=== PATIENT | female | born 1960 | race Caucasian/White ===

== ENCOUNTER 2017-04-19 06:25 | Day surgery (SDC) | payer OTHER ==
[2017-04-18 09:03] VITALS: BMI 27.1
[~2017-04-19 06:25] MED LIST: BACITRACIN/POLYMYXIN B SULFATE 15 GM TUBE TP ONE; LEVOFLOXACIN 500 MG PREMIX BAG IVPB ONE
[2017-04-19] MEDS ORDERED: VASOPRESSIN 20 UNITS/ML VIAL IV ONE (07:05)
[2017-04-19] MEDS ORDERED: BACITRACIN 30 GM TUBE TOPICAL OINTMENT ONE (07:43)
--- NOTE | 2017-04-19 07:49 | HP ---
History & Physical Update - History History: No Change - Physical Physical: No Change - Assessment Assessment: No Change - Plan Plan: No Change
[2017-04-19] MEDS ORDERED: ACETAMINOPHEN 1000 MG/100 ML VIAL (NON FORMULARY) IVPB ONE ×2 (07:51→09:30)
[2017-04-19] MEDS ORDERED: DEXTROSE 5%-0.45% SALINE 1,000 ML IV SCH (08:00)
[2017-04-19] MEDS ORDERED: MIDAZOLAM HCL 2 MG/2 ML SINGLE DOSE VIAL ONE (08:01)
[2017-04-19] MEDS ORDERED: LIDOCAINE HCL/PF 2% SDV 5ML VIAL ONE (08:06)
[2017-04-19] MEDS ORDERED: PROPOFOL 20 ML ONE ×2 (08:06→08:07)
[2017-04-19] MEDS ORDERED: LEVOFLOXACIN 500 MG PREMIX BAG IVPB ONE (08:13)
[2017-04-19] MEDS ORDERED: LEVOFLOXACIN 500 MG IVPB 100 ML IVPB ONE (08:15)
[2017-04-19] MEDS ORDERED: DEXAMETHASONE SOD PHOSPHATE 4 MG/1 ML VIAL ONE (08:24)
[2017-04-19] MEDS ORDERED: ONDANSETRON 4 MG/2 ML VIAL ONE (08:24)
[2017-04-19] MEDS ORDERED: BACITRACIN/POLYMYXIN B SULFATE 15 GM TUBE TP ONE (08:50)
[2017-04-19] MEDS ORDERED: KETOROLAC TROMETHAMINE 30 MG/1 ML VIAL ONE (08:53)
[2017-04-19] MEDS ORDERED: ONDANSETRON 4 MG/2 ML VIAL IVPUSH PRN (09:04)
[2017-04-19] MEDS ORDERED: oxyCODONE HCL 5 MG TABLET PO PRN (09:04)
[2017-04-19] MEDS ORDERED: LACTATED RINGERS SOLUTION 1,000 ML IV SCH (09:15)
[2017-04-19] MEDS ORDERED: ACETAMINOPHEN INJECTION 100 ML IVPB ONE (09:40)
[2017-04-19] MEDS ORDERED: oxyCODONE HCL 5 MG TABLET ONE (11:35)
[2017-04-19 15:19] VITALS: BP 148/82; PULSE 82; TEMP 98
--- NOTE | 2017-04-20 06:43 | OP ---
DATE OF OPERATION: 04/19/2017 PREOPERATIVE DIAGNOSIS: Stress urinary incontinence. POSTOPERATIVE DIAGNOSIS: Stress urinary incontinence. PROCEDURE: Suburethral sling placement and cystoscopy. ANESTHESIA: General. ANESTHESIOLOGIST: Kathe Montoya MD SURGEON: Gage Guillen MD ESTIMATED BLOOD LOSS: 100 mL. SPECIMENS: None. FINDINGS: Normal cystoscopy. PREOPERATIVE INDICATIONS: The patient is a 56-year-old female with classic stress urinary incontinence and hypermobility of urethra on examination. Urodynamics confirms stress urinary incontinence. She comes to the OR for sling placement. OPERATION: The patient was brought to the OR, placed on the table in the supine position, given general anesthesia and IV antibiotics, and placed in the modified lithotomy position. The groin was prepped and draped sterilely. Time-out was performed. Cortez catheter was placed. The mid-portion of the urethra was identified and Pitressin was injected into the vaginal mucosa. Incision was made over the midline, the middle third of the urethra, and the vaginal mucosa was dissected off the periurethral tissues in a lateral fashion. The bladder was emptied. A mini-sling was applied. A trocar was placed on the right side under fingertip control towards the obturator foramen. Similar procedure was done on the left side. The sling was then tightened to just be touching the urethra without compressing it. Cystoscopy was then performed. The bladder appeared to be normal. No evidence of perforation or other stones or tumors seen. The Cortez was replaced. The excess suture was removed, and the vaginal mucosa was closed with 3-0 Vicryl suture n two layers. Vaginal packing and Cortez catheter were both left in place. The patient was woken up. Julissa [id number]
== END 2017-04-19 15:21 | disposition home or self-care (01) ==
LOC: JASU-SURG 06:25
PROVIDERS: ATTEND Urology
PROC: 0TSD0ZZ Reposition Urethra, Open Approach (ICD-10-PCS; principal; 2017-04-19 08:00)
DX: N39.3 Stress incontinence (female) (male) (principal)
CPT/HCPCS: 94760

== ENCOUNTER 2017-04-25 10:48 | Emergency (ER) | payer OTHER ==
[2017-04-25 10:54] VITALS: BP 131/73; PULSE 88; TEMP 98; BMI 26.9
[2017-04-25] MEDS ORDERED: KETOROLAC TROMETHAMINE 60 MG/2 ML VIAL IM ONE (11:43)
[2017-04-25] MEDS ORDERED: KETOROLAC TROMETHAMINE 60 MG/2 ML VIAL ONE (11:47)
--- NOTE | 2017-04-25 11:52 | PDOC ---
History of Present Illness - General Chief Complaint: Pain Stated Complaint: ARM PAIN Time Seen by Provider: 04/25/17 11:24 History Source: Patient Exam Limitations: No Limitations - History of Present Illness Initial Comments: 04/25/17 11:44 56 yr female with c/o one week pain to her right elbow. Pt denies injury no fever or chills. Pt has DM, HTN, high cholesterol, pt is right hand dominant. Past History - Past Medical History Allergies/Adverse Reactions: Allergies Allergy/AdvReac Type Severity Reaction Status Date / Time Penicillins Allergy Intermediate Rash Verified 04/25/17 10:50 Home Medications: Ambulatory Orders Metformin HCl [Glucophage -] 1,000 mg PO DAILY 01/17/15 Losartan Potassium [Cozaar -] 50 mg PO DAILY 02/27/16 Gabapentin [Neurontin] 300 mg PO PRN PRN 04/18/17 Omeprazole/Sodium Bicarbonate [Zegerid 20mg (RX)] 1 each PO DAILY 04/18/17 Simvastatin 40 mg PO DAILY 04/18/17 Oxycodone HCl/Acetaminophen [Percocet 5-325 mg Tablet -] 1 tab PO Q4H PRN #20 tablet MDD 6 04/19/17 Levofloxacin [Levaquin] 1 tab PO DAILY 04/25/17 Naproxen [Naprosyn -] 500 mg PO BID PRN #14 tablet 04/25/17 Anemia: No Asthma: No Cancer: No Cardiac Disorders: No CVA: No COPD: No CHF: No Dementia: No Diabetes: Yes GI Disorders: Yes (?ESOPHAGUS) Disorders: No HTN: Yes Hypercholesterolemia: Yes Liver Disease: No Seizures: No Thyroid Disease: No - Surgical History Abdominal Surgery: Yes (HERNIA) Appendectomy: No Cardiac Surgery: No Cholecystectomy: Yes Lung Surgery: No Neurologic Surgery: No Orthopedic Surgery: No - Psycho/Social/Smoking Cessation Hx Anxiety: No Suicidal Ideation: No Smoking Status: No Smoking History: Never smoked Have you smoked in the past 12 months: No Number of Cigarettes Smoked Daily: 0 Information on smoking cessation initiated: No Hx Alcohol Use: No Drug/Substance Use Hx: No Substance Use Type: None Hx Substance Use Treatment: No Review of Systems - Review of Systems Able to Perform ROS?: Yes Is the patient limited Sinhala proficient: Yes Constitutional: No: Symptoms Reported, Unexplained wgt Loss HEENTM: No: Symptoms Reported Respiratory: No: Symptoms reported Cardiac (ROS): No: Symptoms Reported ABD/GI: No: Symptoms Reported : No: Symptoms Reported Musculoskeletal: Yes: Symptoms Reported *Physical Exam - Vital Signs Last Vital Signs Temp Pulse Resp BP Pulse Ox 98.0 F 88 18 131/73 100 04/25/17 10:50 04/25/17 10:50 04/25/17 10:50 04/25/17 10:50 04/25/17 10:50 - Physical Exam General Appearance: Yes: Nourished, Appropriately Dressed HEENT: positive: EOMI, AIDA Neck: negative: Tender Respiratory/Chest: positive: Lungs Clear, Normal Breath Sounds Cardiovascular: positive: Regular Rhythm, Regular Rate Gastrointestinal/Abdominal: positive: Normal Bowel Sounds, Soft Musculoskeletal: positive: Normal Inspection Extremity: positive: Normal Capillary Refill, Normal Inspection, Tender ( lateral elbow right side , nv intact FROM pain with extension ). negative: Swelling, Erythema, Inflammation Integumentary: positive: Normal Color, Dry, Warm Neurologic: positive: Fully Oriented, Alert, Normal Mood/Affect, Normal Response , Motor Strength 03/11 ED Treatment Course - RADIOLOGY Radiology Studies Ordered: Category Date Time Status ELBOW-RIGHT [RAD] Stat Radiology 04/25/17 11:43 Ordered Medical Decision Making - Medical Decision Making 04/25/17 11:46 cc: right elbow pain one week denies trauma no redness no warmth no fluctuance, pt has FROM of the elbow with some pain with extension, however full range will get xray and give toradol 04/25/17 15:00 xray negative for any acute fracture will give sling and ortho follow up *DC/Admit/Observation/Transfer Diagnosis at time of Disposition: Elbow tendonitis - Discharge Dispostion Disposition: HOME Condition at time of disposition: Fair - Prescriptions Prescriptions: Naproxen [Naprosyn -] 500 mg PO BID PRN #14 tablet PRN Reason: Pain - Referrals Referrals: Maricarmen Cervantes MD [Primary Care Provider] - Bartolo Toro MD [Staff Physician] - - Patient Instructions Additional Instructions: please follow with your primary care doctor for follow up this week use the sling while awake remove to sleep and bathe apply warm compresses to the area of pain every 3hrs for 20 minutes take naprosyn as directed for pain
== END 2017-04-25 13:22 | disposition home or self-care (01) ==
LOC: JERFT 10:48
PROC: 3E0233Z Introduction of Anti-inflammatory into Muscle, Percutaneous Approach (ICD-10-PCS; principal; 2017-04-25)
DX: M77.8 Other enthesopathies, not elsewhere classified (principal); I10 Essential (primary) hypertension; E11.9 Type 2 diabetes mellitus without complications; Z79.84 Long term (current) use of oral hypoglycemic drugs; E78.00 Pure hypercholesterolemia, unspecified; I87.2 Venous insufficiency (chronic) (peripheral)
CPT/HCPCS: 73070-TC-RT; 96372; 99281-25; G0463-25

== ENCOUNTER 2017-05-16 10:28 | Observation (INO) | payer OTHER ==
[2017-05-16 10:38] VITALS: BMI 27.1
--- NOTE | 2017-05-16 11:15 | PDOC ---
History of Present Illness - General Chief Complaint: Back Pain Stated Complaint: BACK PAIN Time Seen by Provider: 05/16/17 11:14 History Source: Patient Exam Limitations: No Limitations - History of Present Illness Initial Comments: CHIEF COMPLAINT: 57 y/o afebrile female with PMH NIDDM, HTN c/o right sided low back pain x 3 days. HISTORY OF PRESENT ILLNESS: The patient states she developed right sided low back pain 3 days ago while doing nothing. She states she has had this pain in the past and has had to have an "injection". She states it is radiating down her right leg and is painful when she moves her right leg. She took a gabapentin for pain with little relief. She denies fall, trauma to back, urinary or bowel incontinence, saddle anesthesia, n/v/d, CP, SOB, abd pain, numbness/tingling in LEs. Vital signs on arrival are notable for pulse of 92. REVIEW OF SYSTEMS: GENERAL/CONSTITUTIONAL: No fever/chills. No weakness. No weight change. HEAD, EYES, EARS, NOSE AND THROAT: No change in vision. No ear pain or discharge. No sore throat. CARDIOVASCULAR: No chest pain or shortness of breath. RESPIRATORY: No cough, wheezing, or hemoptysis. GASTROINTESTINAL: No abd pain, nausea, vomiting, diarrhea. GENITOURINARY: No dysuria, frequency, or change in urination. MUSCULOSKELETAL: No joint or muscle swelling or pain. No neck pain. +right sided low back pain. SKIN: No rash or easy bruising. NEUROLOGIC: No headache, vertigo, loss of consciousness, or loss of sensation. PHYSICAL EXAM: GENERAL: The patient is awake, alert, and fully oriented, in no acute distress. She is lying flat on her back in the ED bed. HEAD: Normal with no signs of trauma. ENT: Pupils equal, round and reactive to light, extraocular movements intact, sclera anicteric, conjunctiva clear. Neck supple. LUNGS: Clear to auscultation bilaterally. Normal excursion. No respiratory distress or use of accessory muscles. CV: RRR, S1/S2, no MRG. Cap refill < 2 sec. ABDOMEN: Soft, non-distended, non-tender even to deep palpation, no hepatomegaly or splenomegaly, no masses. No flank pain. BACK: No midline lumbar or sacral spine TTP or step offs. TTP of right lower lumbar and sacral paravertebral muscles at level of L5 and inferior. Pain reproduced with palpation of right gluteal muscles. EXTREMITIES: Normal range of motion, no edema. Pain with movement of right leg. NEUROLOGICAL: Normal speech. CN II-XII grossly intact. No saddle anesthesia. Equal straight leg raise b/l. PSYCH: Normal mood, normal affect. SKIN: Warm, dry, normal turgor, no rashes or lesions noted. Past History - Past Medical History Allergies/Adverse Reactions: Allergies Allergy/AdvReac Type Severity Reaction Status Date / Time Penicillins Allergy Intermediate Rash Verified 05/16/17 10:38 Home Medications: Ambulatory Orders Metformin HCl [Glucophage -] 1,000 mg PO DAILY 01/17/15 Losartan Potassium [Cozaar -] 50 mg PO DAILY 02/27/16 Gabapentin [Neurontin] 300 mg PO PRN PRN 04/18/17 Omeprazole/Sodium Bicarbonate [Zegerid 20mg (RX)] 1 each PO DAILY 04/18/17 Simvastatin 40 mg PO DAILY 04/18/17 Oxycodone HCl/Acetaminophen [Percocet 5-325 mg Tablet -] 1 tab PO Q4H PRN #20 tablet MDD 6 04/19/17 Levofloxacin [Levaquin] 1 tab PO DAILY 04/25/17 Naproxen [Naprosyn -] 500 mg PO BID PRN #14 tablet 04/25/17 Meloxicam [Mobic (Nf) -] 15 mg PO DAILY #30 tablet MDD 15mg 05/05/17 Anemia: No Asthma: No Cancer: No Cardiac Disorders: No CVA: No COPD: No CHF: No Dementia: No Diabetes: Yes GI Disorders: Yes (?ESOPHAGUS) Disorders: No HTN: Yes Hypercholesterolemia: Yes Liver Disease: No Seizures: No Thyroid Disease: No - Surgical History Abdominal Surgery: Yes (HERNIA) Appendectomy: No Cardiac Surgery: No Cholecystectomy: Yes Lung Surgery: No Neurologic Surgery: No Orthopedic Surgery: No - Immunization History Immunization Up to Date: No - Psycho/Social/Smoking Cessation Hx Anxiety: No Suicidal Ideation: No Smoking Status: No Smoking History: Never smoked Have you smoked in the past 12 months: No Number of Cigarettes Smoked Daily: 0 Information on smoking cessation initiated: No Hx Alcohol Use: No Drug/Substance Use Hx: No Substance Use Type: None Hx Substance Use Treatment: No *Physical Exam - Vital Signs Last Vital Signs Temp Pulse Resp BP Pulse Ox 98.4 F 92 H 18 184/95 100 05/16/17 10:35 05/16/17 10:35 05/16/17 10:35 05/16/17 10:35 05/16/17 10:35 Medical Decision Making - Medical Decision Making A/P: 57 y/o afebrile female with right sided low back pain, that appears to be sciatic in nature. Plan is as follows: 1. PO valium 2. IM Toradol 3. Reassess Pt still in pain. Ordered CT scan of lumbar spine CT scan lumbar spine IMPRESSION: No acute bony abnormalities. No evidence of compression deformities, spondylolisthesis or spondylolysis. L5-S1 Chronic degenerative discogenic disease at L5-S1. Right paracentral disc bulge with annular calcifications contacting the right S1 nerve with mild posterior displacement. Schmorl's node in the superior endplate of L5. Gave the patient her results. She has been able to move both legs but refuses to try to walk because of pain. Will give PO Percocet and retry ambulation. After the patient woke up from grogginess from percocet, she was still unable to get up and walk secondary to pain. Will admit to observation for pain managment. The patient will be admitted to Dr. Patterson, who accepts admission to obs. \\ *DC/Admit/Observation/Transfer Diagnosis at time of Disposition: Sciatica of right side Back pain Qualifiers: Back pain location: low back pain Chronicity: acute Back pain laterality: right Sciatica presence: with sciatica Sciatica laterality: sciatica of right side Qualified Code(s): M54.41 - Lumbago with sciatica, right side - Discharge Dispostion Condition at time of disposition: Stable Admit: Yes
[2017-05-16] MEDS ORDERED: diazePAM 5 MG TABLET PO ONE (11:29)
[2017-05-16] MEDS ORDERED: KETOROLAC TROMETHAMINE 60 MG/2 ML VIAL IM ONE (11:29)
[2017-05-16] MEDS ORDERED: KETOROLAC TROMETHAMINE 60 MG/2 ML VIAL ONE (11:32)
[2017-05-16] MEDS ORDERED: diazePAM 5 MG TABLET ONE (11:33)
--- NOTE | 2017-05-16 13:20 | PDOC ---
*Physical Exam - Vital Signs Last Vital Signs Temp Pulse Resp BP Pulse Ox 98.4 F 75 16 184/95 97 05/16/17 10:35 05/16/17 11:20 05/16/17 11:20 05/16/17 10:35 05/16/17 11:20 ED Treatment Course - Medications Given in the ED: ED Medications Discontinued Medications Generic Name Dose Route Start Last Admin Trade Name Freq PRN Reason Stop Dose Admin Diazepam 10 mg 05/16/17 11:29 05/16/17 11:40 Valium - PO 05/16/17 11:30 10 mg ONCE ONE Administration Ketorolac Tromethamine 60 mg 05/16/17 11:29 05/16/17 11:40 Toradol Injection - IM 05/16/17 11:30 60 mg ONCE ONE Administration Medical Decision Making - Medical Decision Making 05/16/17 13:20 Pt seen by the Advanced Practice Provider under my direct supervision Ancillary studies reviewed I agree with plan as outlined by the Advanced Practice Provider JACE Mccracken
[2017-05-16] MEDS ORDERED: OXYCODONE/APAP 5/325MG COMBO TABLET PO ONE (14:50)
[2017-05-16] MEDS ORDERED: OXYCODONE/APAP 5/325MG COMBO TABLET ONE (15:22)
[2017-05-16] MEDS ORDERED: SODIUM CHLORIDE 1,000 ML IV STA (18:41)
[2017-05-16 20:25] LABS: BASOPHIL 0.4 % (0-2.0); EOSINOPHIL 0.6 % (0-4.5); MCH 31.9 pg (25.7-33.7); MCHC 34.2 g/dl (32.0-36.0); MEAN CELL VOLUME 93.2 fl (80-96); NEUTROPHILS 80.5 % (42.8-82.8); PLATELET COUNT 214 K/MM3 (134-434); RDW 12.4 % (11.6-15.6); WHITE BLOOD COUNT 9.2 K/mm3 (4.0-10.0)
[2017-05-16 20:48] LABS: ALBUMIN 3.6 g/dl (3.4-5.0); ANION GAP 7 (8-16); BILIRUBIN,TOTAL 0.3 mg/dL (0.2-1.0); CALCIUM 8.8 mg/dL (8.5-10.1); CO2 28 mmol/L (21-32); CREATININE 0.5 mg/dL (0.55-1.02); GLUCOSE,RANDOM 167 mg/dL (74-106); SGOT/AST 29 U/L (15-37); SGPT/ALT 39 U/L (12-78); TOT PROT 6.8 g/dl (6.4-8.2)
[2017-05-16 20:49] LABS: ALK PHOS 60 U/L (45-117)
[2017-05-16] MEDS ORDERED: OXYCODONE/APAP 5/325MG COMBO TABLET PO PRN (21:16)
--- NOTE | 2017-05-16 21:16 | HP ---
Admitting History and Physical - Primary Care Physician PCP: Tangela Patterson - Admission History of Present Illness: 57 y/o afebrile female with PMH NIDDM, HTN c/o right sided low back pain x 3 days. The patient states she developed right sided low back pain 3 days ago while doing nothing. She states she has had this pain in the past and has had to have an "injection". She states it is radiating down her right leg and is painful when she moves her right leg. She took a gabapentin for pain with little relief. She denies fall, trauma to back, urinary or bowel incontinence. - Past Medical History Cardiovascular: Yes: HTN Gastrointestinal: Yes: GERD Endocrine: Yes: Diabetes Mellitus - Smoking History Smoking history: Never smoked Have you smoked in the past 12 months: No Aproximately how many cigarettes per day: 0 - Alcohol/Substance Use Hx Alcohol Use: No - Social History ADL: Independent Home Medications - Allergies Allergies/Adverse Reactions: Allergies Allergy/AdvReac Type Severity Reaction Status Date / Time Penicillins Allergy Intermediate Rash Verified 05/16/17 10:38 - Home Medications Home Medications: Ambulatory Orders Metformin HCl [Glucophage -] 1,000 mg PO DAILY 01/17/15 Losartan Potassium [Cozaar -] 50 mg PO DAILY 02/27/16 Gabapentin [Neurontin] 300 mg PO PRN PRN 04/18/17 Omeprazole/Sodium Bicarbonate [Zegerid 20mg (RX)] 1 each PO DAILY 04/18/17 Simvastatin 40 mg PO DAILY 04/18/17 Oxycodone HCl/Acetaminophen [Percocet 5-325 mg Tablet] 1 tab PO Q4H PRN #20 tablet MDD 6 04/19/17 Levofloxacin [Levaquin] 1 tab PO DAILY 04/25/17 Naproxen [Naprosyn -] 500 mg PO BID PRN #14 tablet 04/25/17 Meloxicam [Mobic (Nf) -] 15 mg PO DAILY #30 tablet MDD 15mg 05/05/17 Ibuprofen [Motrin -] 600 mg PO TID #21 tablet 05/17/17 Physical Examination Vital Signs: Vital Signs Temperature 98.0 F 05/16/17 20:52 Pulse Rate 76 05/16/17 20:52 Respiratory Rate 22 05/16/17 20:52 Blood Pressure 170/98 05/16/17 20:52 O2 Sat by Pulse Oximetry (%) 96 05/16/17 20:52 Constitutional: Yes: No Distress HENT: Yes: Atraumatic Neck: Yes: Supple Cardiovascular: Yes: Regular Rate and Rhythm Respiratory: Yes: CTA Bilaterally Gastrointestinal: Yes: Normal Bowel Sounds Extremities: Yes: WNL Neurological: Yes: Alert, Oriented Labs: CBC, BMP 05/16/17 20:12 05/16/17 20:12 Problem List - Problems (1) Back pain Assessment/Plan: prn pain meds neuro consult Code(s): M54.9 - DORSALGIA, UNSPECIFIED Qualifiers: Back pain location: low back pain Chronicity: acute Back pain laterality: right Sciatica presence: with sciatica Sciatica laterality: sciatica of right side Qualified Code(s): M54.41 - Lumbago with sciatica, right side (2) Sciatica of right side Code(s): M54.31 - SCIATICA, RIGHT SIDE Assessment/Plan Laboratory Tests 05/16/17 05/16/17 05/16/17 18:55 18:55 20:12 WBC Cancelled 9.2 D Corrected WBC (auto) Cancelled RBC Cancelled 4.42 Hgb Cancelled 14.1 Hct Cancelled 41.2 MCV Cancelled 93.2 MCH Cancelled 31.9 MCHC Cancelled 34.2 RDW Cancelled 12.4 Plt Count Cancelled 214 MPV Cancelled 8.0 Neutrophils % Cancelled 80.5 D Lymphocytes % Cancelled 12.9 D Monocytes % Cancelled 5.6 Eosinophils % Cancelled 0.6 D Basophils % Cancelled 0.4 Differential Comment Cancelled Smudge Cells Cancelled Platelet Estimate Cancelled Platelet Comment Cancelled RBC Morphology Cancelled Sodium Cancelled Potassium Cancelled Chloride Cancelled Carbon Dioxide Cancelled Anion Gap Cancelled BUN Cancelled Creatinine Cancelled Creat Clearance w eGFR Cancelled Random Glucose Cancelled Calcium Cancelled Total Bilirubin Cancelled AST Cancelled ALT Cancelled Alkaline Phosphatase Cancelled Total Protein Cancelled Albumin Cancelled 05/16/17 20:12 WBC Corrected WBC (auto) RBC Hgb Hct MCV MCH MCHC RDW Plt Count MPV Neutrophils % Lymphocytes % Monocytes % Eosinophils % Basophils % Differential Comment Smudge Cells Platelet Estimate Platelet Comment RBC Morphology Sodium 141 Potassium 4.2 Chloride 106 Carbon Dioxide 28 Anion Gap 7 L BUN 13 D Creatinine 0.5 L Creat Clearance w eGFR > 60 Random Glucose 167 H Calcium 8.8 Total Bilirubin 0.3 D AST 29 ALT 39 D Alkaline Phosphatase 60 D Total Protein 6.8 Albumin 3.6
[2017-05-16] MEDS ORDERED: oxyCODONE HCL 5 MG TABLET PO PRN (21:23)
[2017-05-16] MEDS ORDERED: ACETAMINOPHEN 325 MG TABLET (FP) PO PRN ×2 (21:23→23:44)
[2017-05-17] MEDS: metFORMIN HCL 500 MG TABLET (FP) PO SCH ×2 (06:54→11:28)
[2017-05-17] MEDS ORDERED: LOSARTAN POTASSIUM 25 MG TABLET PO SCH (10:00)
[2017-05-17] MEDS ORDERED: ATORVASTATIN CA 20 MG TABLET (FP) PO SCH (10:00)
--- NOTE | 2017-05-17 10:25 | CON.NEURO ---
Consult Consult Specialty:: Neurology Referred by:: Leonardo Reason for Consultation:: Lumbago with radicular pain - History of Present Illness Chief Complaint: lumbar pain after fall with pain radiating down right leg History of Present Illness: Patient with prior history of back pain and "injections" in the past, now complains of low back pain for 3 days after fall at home. she came to ER in pain so bad that she was unable to walk and was admitted, but now is ambulatory. She still notes pain radiating down the right leg. In the past she has been on gabapentin and says that it didnt' help, though I don't know the dose. 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) Cardio/Vascular: Yes: HTN Gastrointestinal: Yes: GERD Endocrine: Yes: Diabetes Mellitus - Alcohol/Substance Use Hx Alcohol Use: No - Smoking History Smoking history: Never smoked Have you smoked in the past 12 months: No Aproximately how many cigarettes per day: 0 - Social History ADL: Independent Home Medications - Allergies Allergies/Adverse Reactions: Allergies Allergy/AdvReac Type Severity Reaction Status Date / Time Penicillins Allergy Intermediate Rash Verified 05/16/17 10:38 - Home Medications Home Medications: Ambulatory Orders Metformin HCl [Glucophage -] 1,000 mg PO DAILY 01/17/15 Losartan Potassium [Cozaar -] 50 mg PO DAILY 02/27/16 Gabapentin [Neurontin] 300 mg PO PRN PRN 04/18/17 Omeprazole/Sodium Bicarbonate [Zegerid 20mg (RX)] 1 each PO DAILY 04/18/17 Simvastatin 40 mg PO DAILY 04/18/17 Oxycodone HCl/Acetaminophen [Percocet 5-325 mg Tablet -] 1 tab PO Q4H PRN #20 tablet MDD 6 04/19/17 Levofloxacin [Levaquin] 1 tab PO DAILY 04/25/17 Naproxen [Naprosyn -] 500 mg PO BID PRN #14 tablet 04/25/17 Meloxicam [Mobic (Nf) -] 15 mg PO DAILY #30 tablet MDD 15mg 05/05/17 Physical Exam-Neuro Vital Signs: Vital Signs Temperature 98.3 F 05/17/17 05:00 Pulse Rate 69 05/17/17 05:00 Respiratory Rate 18 05/17/17 05:00 Blood Pressure 140/79 05/17/17 05:00 O2 Sat by Pulse Oximetry (%) 98 05/16/17 22:00 Musculoskeletal: Yes: Back Pain (on straight leg raise at 80 degrees with no radicular component) Labs: CBC, BMP 05/16/17 20:12 05/16/17 20:12 - Neuro Exam Eyes: Yes: AIDA Speech: WNL Cranial Nerves II-XII Intact: Yes Gag: Present DTR's: 0 Left Achilles, 0 Right Achilles, 2+ Left Bicep, 2+ Right Bicep, 2+ Left Tricep, 2+ Right Tricep, 2+ Left Brachioradialis, 2+ Right Brachioradialis Babinski: Absent Response to light touch: Normal Response to pain prick: Normal Motor Strength: 5/5: Left Arm, Right Arm, Left Leg, Right Leg Gait: Normal, Other (mildly antalgic but walks without difficulty) NIH Stroke Scale - Total Score NIH Stroke Scale Score: 0 Imaging - Results Cat Scan: Report Reviewed (L5-S1 disc displacement contact Right S1 nerve root) Assessment/Plan Low back pain with what is likely, at least based on imaging, an S1 radiculopathy. At this point she is significantly better, and can be discharged. I would start duloxetine 30 mg daily for a week, increase to 60 mg after one week. I would continue percocet for the time being, to be tapered off later. Please have her follow up in my [place] office. Appointment can be made at [phone]. Thanks.
[2017-05-17 15:58] VITALS: BP 152/72; PULSE 72; TEMP 98.1
--- NOTE | 2017-05-17 16:05 | DS ---
Physical Examination Vital Signs: Vital Signs Temperature 98.1 F 05/17/17 15:55 Pulse Rate 72 05/17/17 15:55 Respiratory Rate 20 05/17/17 15:55 Blood Pressure 152/72 05/17/17 15:55 O2 Sat by Pulse Oximetry (%) 98 05/16/17 22:00 Constitutional: Yes: No Distress HENT: Yes: Atraumatic Neck: Yes: Supple Cardiovascular: Yes: Regular Rate and Rhythm Respiratory: Yes: CTA Bilaterally Gastrointestinal: Yes: Normal Bowel Sounds Extremities: Yes: WNL Neurological: Yes: Alert, Oriented Labs: CBC, BMP 05/16/17 20:12 05/16/17 20:12 Discharge Summary Reason For Visit: SCIATICA OF RIGHT SIDE; BACK PAIN Current Active Problems Back pain (Acute) Sciatica of right side (Acute) - Instructions Referrals: Wyatt Cuba MD [Staff Physician] - Maricarmen Cervantes MD [Primary Care Provider] - Disposition: HOME - Home Medications Comprehensive Discharge Medication List: Ambulatory Orders Metformin HCl [Glucophage -] 1,000 mg PO DAILY 01/17/15 Losartan Potassium [Cozaar -] 50 mg PO DAILY 02/27/16 Gabapentin [Neurontin] 300 mg PO PRN PRN 04/18/17 Omeprazole/Sodium Bicarbonate [Zegerid 20mg (RX)] 1 each PO DAILY 04/18/17 Simvastatin 40 mg PO DAILY 04/18/17 Oxycodone HCl/Acetaminophen [Percocet 5-325 mg Tablet] 1 tab PO Q4H PRN #20 tablet MDD 6 04/19/17 Levofloxacin [Levaquin] 1 tab PO DAILY 04/25/17 Naproxen [Naprosyn -] 500 mg PO BID PRN #14 tablet 04/25/17 Meloxicam [Mobic (Nf) -] 15 mg PO DAILY #30 tablet MDD 15mg 05/05/17 Ibuprofen [Motrin -] 600 mg PO TID #21 tablet 05/17/17 DC HOME FU PMD/NEURO OUT PT
== END 2017-05-17 04:40 | disposition home or self-care (01) ==
LOC: JER 10:28 → JERBED 18:42 → J5S 21:51
PROVIDERS: ADMIT Internal Medicine; ATTEND Internal Medicine
PROC: 3E033NZ Introduction of Analgesics, Hypnotics, Sedatives into Peripheral Vein, Percutaneous Approach (ICD-10-PCS; principal; 2017-05-16)
PROC: 3E0337Z Introduction of Electrolytic and Water Balance Substance into Peripheral Vein, Percutaneous Approach (ICD-10-PCS; 2017-05-16)
DX: M54.41 Lumbago with sciatica, right side (principal); I10 Essential (primary) hypertension; E11.9 Type 2 diabetes mellitus without complications; K21.9 Gastro-esophageal reflux disease without esophagitis; Z88.0 Allergy status to penicillin; Z79.84 Long term (current) use of oral hypoglycemic drugs
CPT/HCPCS: 36415; 72131-TC; 80053; 85025; 99283-25; G0378